=== PATIENT | female | born 1990 ===

== ENCOUNTER 2022-01-29 06:15 | Day surgery (SDC) | payer OTHER ==
[~2022-01-29] VITALS: Ht 167.6 cm; Wt 102.5 kg
[~2022-01-29 06:15] MED LIST: PREVACID30 MG PO; QUESTRAN LIGH4 G/PKT PO; ZANTAC300 MG PO
== END 2022-01-29 18:05 | disposition home or self-care (01) ==
LOC: CIR.AMB 06:15
PROVIDERS: ATTEND Obstetrics & Gynecology
DX: N93.9 Abnormal uterine and vaginal bleeding, unspecified (principal); N85.01 Benign endometrial hyperplasia; I10 Essential (primary) hypertension; Z20.822 Contact with and (suspected) exposure to COVID-19; Z91.011 Allergy to milk products; Z86.16 Personal history of COVID-19

== ENCOUNTER 2022-03-14 08:45 | Inpatient (IN) | payer OTHER ==
[~2022-03-14] VITALS: Ht 167.6 cm; Wt 102.5 kg
== END 2022-03-22 09:54 | disposition home or self-care (01) | DRG 743 ==
LOC: ADM 08:45 → EDSTATUS 08:45 → O/R 03-19 06:10 → SURH 03-19 08:45 → OB/GYN 03-19 16:41
PROVIDERS: ADMIT Obstetrics & Gynecology; ATTEND Obstetrics & Gynecology
PROC: 0UT70ZZ Resection of Bilateral Fallopian Tubes, Open Approach (ICD-10-PCS; 2022-03-19)
PROC: 0UT20ZZ Resection of Bilateral Ovaries, Open Approach (ICD-10-PCS; 2022-03-19)
PROC: 0UT90ZZ Resection of Uterus, Open Approach (ICD-10-PCS; principal; 2022-03-19 09:30)
DX: D25.2 Subserosal leiomyoma of uterus (principal); N72 Inflammatory disease of cervix uteri; Z20.822 Contact with and (suspected) exposure to COVID-19

== ENCOUNTER 2022-04-05 10:33 | Emergency (ER) | payer OTHER ==
[~2022-04-05] VITALS: Ht 167.6 cm; Wt 102.5 kg
[2022-04-05] MEDS ORDERED: CYSTEX (11:11)
== END 2022-04-05 13:13 | disposition home or self-care (01) ==
LOC: ER 10:33
DX: N39.0 Urinary tract infection, site not specified (principal)